=== PATIENT | female | born 1945 | race Caucasian/White ===

== ENCOUNTER 2022-10-19 09:45 | Outpatient (CLI) | payer MEDICARE | END 2022-10-19 09:46 | disposition home or self-care (01) | LOC: MRI 09:45 | PROVIDERS: ATTEND Family Medicine | DX: R29.898 Other symptoms and signs involving the musculoskeletal system (principal); G62.9 Polyneuropathy, unspecified; R26.9 Unspecified abnormalities of gait and mobility; R26.89 Other abnormalities of gait and mobility; M47.816 Spondylosis without myelopathy or radiculopathy, lumbar region; R29.890 Loss of height; M51.36 Other intervertebral disc degeneration, lumbar region; M47.817 Spondylosis without myelopathy or radiculopathy, lumbosacral region; M51.37 Other intervertebral disc degeneration, lumbosacral region | CPT/HCPCS: 72148 ==

== ENCOUNTER 2023-07-30 10:46 | Outpatient (CLI) | payer MEDICARE | END 2023-07-30 10:47 | disposition home or self-care (01) | LOC: SCSRAD 10:46 | PROVIDERS: ATTEND Family Medicine | DX: M25.551 Pain in right hip (principal); R10.2 Pelvic and perineal pain; M61.9 Calcification and ossification of muscle, unspecified; M25.751 Osteophyte, right hip | CPT/HCPCS: 72170 ==